=== PATIENT | female | born 1960 | race African-American/Black ===

== ENCOUNTER 2017-02-04 21:53 | Emergency (ER) | payer OTHER ==
[~2017-02-04] VITALS: Ht 152.4 cm; Wt 90.0 kg
[~2017-02-04 21:53] MED LIST: ASPIRIN81 M2 PO; ENDOCET 5-3251 EACH; FLUOXETINE HCL20 MG PO; HYDROCHLOROTHIA25 MG; LISINOPRIL10 MG PO; MELOXICAM7.5 MG PO; MORPHINE SULFAT15 M1 PO; NEURONTIN300 MG PO; TAMIFLU75 MG PO; TOPIRAMATE25 MG PO
[2017-02-04 23:15] LABS: HEMATOCRIT 34.4 % (36.0-46.0); MCH 29.6 PG (29.0-34.0); MCHC 31.1 G/DL (30.0-36.0); MEAN PLAT.VOLUME 10.3 uM^3 (9.5-12.4); PLATELET COUNT 227 K/uL (156-360); RBC DIS.WIDTH-CV 14.5 % (11.8-14.6); RBC DIS.WIDTH-SD 51.3 % (39-53); RED BLOOD COUNT 3.62 M/uL (3.80-5.20); WHITE BLOOD COUNT 6.6 K/uL (4.1-10.2)
[2017-02-04 23:27] LABS: CHLORIDE 109 mEq/L (99-109); POTASSIUM 4.2 mEq/L (3.7-5.4); SODIUM 141 mEq/L (136-147)
[2017-02-04 23:29] LABS: GLUCOSE 83 mg/dL (70-99)
[2017-02-04 23:30] LABS: ANION GAP 9 MEQ/L (2-14)
[2017-02-04 23:33] LABS: GFR ESTIMATE (CALCULATED) > 59 mL/min/
[2017-02-04 23:34] LABS: TROP-I INTERPRETATION NEGATIVE; TROPONIN-I < 0.01 ng/mL (0.0-0.30); UREA NITROGEN (BUN) 20 mg/dL (9-23)
[2017-02-05 01:19] LABS: D-DIMER ELISA 0.26 mg/L FEU (< 0.57); PROTHROMBIN TIME 10.1 (9.2-11.2); PTT 26.3 (25-32)
[2017-02-05 01:42] LABS: CREATINE KINASE 195 IU/L (1-294)
[2017-02-05 02:55] LABS: TROP-I INTERPRETATION NEGATIVE; TROPONIN-I < 0.01 ng/mL (0.0-0.30)
[2017-02-05 03:45] VITALS: BP 121/69
== END 2017-02-05 03:45 | disposition home or self-care (01) ==
LOC: EME 21:53
PROVIDERS: Emergency Medicine
DX: R07.89 Other chest pain (principal); R60.1 Generalized edema; M54.5 Low back pain; Z82.49 Family history of ischemic heart disease and other diseases of the circulatory system; Z88.6 Allergy status to analgesic agent; Z91.013 Allergy to seafood
CPT/HCPCS: 71020; 80048; 82550; 83880; 84484; 85027; 85379; 85610; 85730; 93005; 99281; 99285